=== PATIENT | male | born 1955 | race Caucasian/White ===

== ENCOUNTER 2020-06-23 08:01 | Outpatient (CLI) | payer OTHER ==
--- NOTE | 2020-06-23 09:32 | CT Report ---
PROCEDURE: Low Dose Lung Cancer Screen INDICATIONS: HISTORY OF SMOKING TECHNIQUE: Noncontrast low-dose 5 mm thick sections acquired from the pulmonary apices to the posterior costophr enic angles. 7 mm thick coronal and sagittal MIP reformats were then acquired. For radiation dose r eduction, the following was used: automated exposure control, adjustment of mA and/or kV according t o patient size. COMPARISON: None. FINDINGS: Image quality: Excellent. Lungs and pleura: There is no suspicious noncalcified pulmonary nodule or mass. No acute airspace op acity otherwise. No pleural effusion or other significant pleural findings. Mediastinum: Heart size is normal. No pericardial effusion. No mediastinal adenopathy by size crit eria. Thoracic aorta and central pulmonary arteries are normal in size. Esophagus is normal in mary alberto. No hiatal hernia. Bones and chest wall: No suspicious bony lesions. No vertebral body compression fractures. No axil pancho or supraclavicular adenopathy by size criteria. The thyroid is normal in size. Abdomen: No acute finding the included unenhanced upper abdomen. Aortic atherosclerosis. IMPRESSION: No suspicious pulmonary nodule or mass. Lung-RADS category 1. Recommend continued annual low-dose CT of the chest for lung cancer screening. Reviewed by: Jam Lara MD on 06/23/2020 9:30 AM [facility]UST Approved by: Jam Lara MD on 06/23/2020 9:30 AM PST Station ID: [id number]
== END 2020-06-23 08:02 | disposition home or self-care (01) ==
LOC: DI 08:01
PROVIDERS: ATTEND Student in an Organized Health Care Education/Training Program
DX: Z12.2 Encounter for screening for malignant neoplasm of respiratory organs (principal); Z87.891 Personal history of nicotine dependence